=== PATIENT | female | born 1940 | race Caucasian/White ===

== ENCOUNTER → 2017-01-18 | Outpatient (CLI) | payer MEDICARE | END | disposition home or self-care (01) | LOC: CFH 10:46 | PROVIDERS: ATTEND Nurse Practitioner Family | DX: Z12.31 Encounter for screening mammogram for malignant neoplasm of breast (principal) | CPT/HCPCS: G0202 ==

== ENCOUNTER → 2017-05-20 | Outpatient (CLI) | payer MEDICARE | LOC: CFH 10:50 | PROVIDERS: ATTEND Nurse Practitioner Family | DX: Z13.820 Encounter for screening for osteoporosis (principal); M85.88 Other specified disorders of bone density and structure, other site; N95.1 Menopausal and female climacteric states | CPT/HCPCS: 77080 ==

== ENCOUNTER 2017-12-02 08:31 | Inpatient (IN) | payer MEDICARE ==
[~2017-12-02] VITALS: Ht 157.5 cm; Wt 63.9 kg
[2017-12-02] MEDS ORDERED: ONDANSETRON ODT 4 MG ONE (08:54)
[2017-12-02] MEDS ORDERED: MORPHINE SULFATE 4 MG/ML, 1ML ONE ×2 (08:55→16:44)
[2017-12-02] MEDS ORDERED: MORPHINE SULFATE 4 MG/ML, 1ML IVPush PRN ×2 (09:00→15:30)
[2017-12-02] MEDS ORDERED: SODIUM CHLORIDE FLUSH 10ML SYR IVF ONE (09:00)
[2017-12-02] MEDS ORDERED: ONDANSETRON ODT 4 MG PO ONE (09:00)
[2017-12-02 09:35] LABS: BASOPHILS # (AUTO) 0.08 x10^3/uL (0-0.1); BASOPHILS % (AUTO) 1 % (0-1); EOSINOPHILS # (AUTO) 0.11 x10^3/uL (0-0.4); EOSINOPHILS % (AUTO) 2 % (1-7); LYMPHOCYTES # (AUTO) 2.08 x10^3/uL (1-3.4); LYMPHOCYTES % (AUTO) 31 % (22-44); MD NO; MEAN CORPUSCULAR HEMOGLOBIN 32.3 pg (27.0-34.8); MEAN CORPUSCULAR HGB CONC 33.6 g/dL (32.4-35.8); MEAN PLATELET VOLUME 9.5 fL (7.4-10.4); MONOCYTES # (AUTO) 0.41 x10^3/uL (0.2-0.8); MONOCYTES % (AUTO) 6 % (2-9); NEUTROPHILS # (AUTO) 4.01 x10^3/uL (1.8-6.8); NEUTROPHILS % (AUTO) 60 % (42-75); PLATELET COUNT 218 x10^3/uL (130-400); RED BLOOD COUNT 4.54 x10^6/uL (3.82-5.3); RED CELL DISTRIBUTION WIDTH 13.4 % (9.6-15.2)
[2017-12-02 09:46] LABS: ALANINE AMINOTRANSFERASE 22 U/L (12-78); ALBUMIN 3.8 g/dL (3.4-5.0); ANION GAP 10 mmol/L (5-15); CALCIUM 8.6 mg/dL (8.5-10.1); CHLORIDE 108 mmol/L (98-107)
[2017-12-02 09:48] LABS: ALKALINE PHOSPHATASE 85 U/L (45-117); BILIRUBIN,TOTAL 0.2 mg/dL (0.2-1.0); CREATININE 0.83 mg/dL (0.55-1.02); TOTAL PROTEIN 7.6 g/dL (6.4-8.2)
[2017-12-02] MEDS ORDERED: SODIUM CHLORIDE 0.9% 1,000 ML IV ONE (10:04)
[2017-12-02] MEDS ORDERED: CEFAZOLIN 1,000 MG ONE (10:24)
[2017-12-02] MEDS ORDERED: SODIUM CHLORIDE FLUSH 10ML SYR IVF PRN (10:30)
[2017-12-02] MEDS ORDERED: MULT-6 PO (11:02)
[2017-12-02] MEDS ORDERED: ASPI-650 PO (11:03)
[2017-12-02] MEDS ORDERED: MULT-706 PO (11:05)
[2017-12-02] MEDS ORDERED: BIOT1CAP3 PO (11:05)
[2017-12-02] MEDS ORDERED: LABETALOL 5MG/ML, 20ML IVPush PRN (11:30)
[2017-12-02] MEDS ORDERED: ONDANSETRON 2MG/ML, 2ML IVPush PRN (11:30)
[2017-12-02] MEDS ORDERED: ACETAMINOPHEN 325 MG TABLET PO PRN ×2 (11:30→15:30)
[2017-12-02] MEDS ORDERED: morphine SULFATE 10 MG/ML, 1ML IVPush PRN (11:30)
[2017-12-02] MEDS ORDERED: hydrALAzine 20 MG/ML, 1ML IVPush PRN (11:30)
[2017-12-02] MEDS ORDERED: DOCUSATE 100 MG CAPSULE PO PRN (11:30)
[2017-12-02] MEDS ORDERED: BISACODYL 10 MG SUPP PR PRN (11:30)
[2017-12-02] MEDS ORDERED: ONDANSETRON ODT 4 MG PO PRN (11:30)
[2017-12-02 12:30] VITALS: BP 138/70
[2017-12-02] MEDS: ALBUTEROL/IPRATROPIUM 2.5MG/0.5MG, 3 ML NPPB SCH ×2 (15:00→19:00)
[2017-12-02] MEDS ORDERED: FENTANYL PF 250 MCG/5ML ONE (15:00)
[2017-12-02] MEDS ORDERED: ONDANSETRON 2MG/ML, 2ML ONE (15:19)
[2017-12-02] MEDS ORDERED: PROPOFOL 10 MG/ML, 20ML ONE (15:19)
[2017-12-02] MEDS ORDERED: DEXAMETHASONE 4 MG/ML, 1ML ONE (15:19)
[2017-12-02] MEDS ORDERED: hydrALAzine 20 MG/ML, 1ML IV PRN (15:30)
[2017-12-02] MEDS ORDERED: ONDANSETRON 2MG/ML, 2ML IV PRN ×2 (15:30→18:30)
[2017-12-02] MEDS ORDERED: LABETALOL 5MG/ML, 20ML IV PRN (15:30)
[2017-12-02] MEDS ORDERED: OXYcodone 5 MG/5 ML ORAL.SOL UDC PO PRN (15:30)
[2017-12-02] MEDS ORDERED: MEPERIDINE/PF 25MG/0.5ML IVPush PRN (15:30)
[2017-12-02] MEDS ORDERED: PROMETHAZINE 25 MG/ML, 1ML IV PRN (15:30)
[2017-12-02] MEDS ORDERED: HYDROmorphone 1 MG/ML, 1ML IV PRN ×2 (15:30→18:30)
[2017-12-02] MEDS ORDERED: OXYcodone 5 MG/5 ML ORAL.SOL UDC ONE ×2 (16:11→16:16)
[2017-12-02] MEDS ORDERED: ACETAMINOPHEN 650 MG/20.3 ML UDC ONE (16:11)
[2017-12-02] MEDS ORDERED: FENTANYL PF 100 MCG/2ML ONE (16:11)
[2017-12-02] MEDS ORDERED: LABETALOL 5MG/ML, 20ML ONE (16:13)
[2017-12-02] MEDS: FENTANYL PF 100 MCG/2ML IV PRN ×2 (16:26→16:39)
[2017-12-02] MEDS ORDERED: KETOROLAC 30 MG/1 ML IV SCH (18:30)
[2017-12-02] MEDS ORDERED: HYDROcodone/APAP 7.5-325MG/15ML UDC PO PRN (18:30)
[2017-12-02] MEDS ORDERED: OXYcodone/APAP 5/325MG TABLET PO PRN (18:30)
[2017-12-02 19:53] VITALS: BP 138/69
[2017-12-02] MEDS ORDERED: ALBUTEROL/IPRATROPIUM 2.5MG/0.5MG, 3 ML NPPB PRN (20:00)
[2017-12-02] MEDS: DOCUSATE 100 MG CAPSULE PO SCH (20:29)
[2017-12-02] MEDS: CEFAZOLIN PMX 1GM/50ML 50 ML IVPB SCH (23:11)
[2017-12-03 00:09] VITALS: BP 125/70
[2017-12-03] MEDS: KETOROLAC 30 MG/1 ML IV SCH ×3 (01:04→16:38)
[2017-12-03 04:34] VITALS: BP 122/69
[2017-12-03 05:49] LABS: ANION GAP 8 mmol/L (5-15); CALCIUM 7.9 mg/dL (8.5-10.1); CHLORIDE 105 mmol/L (98-107)
[2017-12-03 06:00] LABS: CREATININE 0.83 mg/dL (0.55-1.02); THYROID STIMULATING HORMONE 0.681 mIU/L (0.358-3.740)
[2017-12-03 06:03] LABS: BASOPHILS # (AUTO) 0.01 x10^3/uL (0-0.1); BASOPHILS % (AUTO) 0 % (0-1); EOSINOPHILS % (AUTO) 0 % (1-7); LYMPHOCYTES # (AUTO) 0.94 x10^3/uL (1-3.4); LYMPHOCYTES % (AUTO) 8 % (22-44); MD NO; MEAN CORPUSCULAR HEMOGLOBIN 32.4 pg (27.0-34.8); MEAN CORPUSCULAR HGB CONC 33.6 g/dL (32.4-35.8); MEAN CORPUSCULAR VOLUME 96.4 fL (80-100); MEAN PLATELET VOLUME 9.3 fL (7.4-10.4); MONOCYTES # (AUTO) 0.87 x10^3/uL (0.2-0.8); MONOCYTES % (AUTO) 8 % (2-9); NEUTROPHILS # (AUTO) 9.72 x10^3/uL (1.8-6.8); NEUTROPHILS % (AUTO) 84 % (42-75); PLATELET COUNT 164 x10^3/uL (130-400); RED CELL DISTRIBUTION WIDTH 13.3 % (9.6-15.2)
[2017-12-03] MEDS: ENOXAPARIN 40 MG/0.4 ML SQ SCH (06:20)
[2017-12-03 06:48] VITALS: BP 130/72
[2017-12-03] MEDS: DOCUSATE 100 MG CAPSULE PO SCH ×2 (07:53→20:10)
[2017-12-03] MEDS: CEFAZOLIN PMX 1GM/50ML 50 ML IVPB SCH (07:54)
[2017-12-03] MEDS ORDERED: TAMSULOSIN 0.4 MG CAP.ER.24H PO SCH (10:30)
[2017-12-03 13:10] VITALS: BP 99/58
[2017-12-03 19:22] VITALS: BP 118/70
[2017-12-04 01:11] VITALS: BP 123/68
[2017-12-04 05:32] LABS: BASOPHILS # (AUTO) 0.05 x10^3/uL (0-0.1); BASOPHILS % (AUTO) 1 % (0-1); EOSINOPHILS # (AUTO) 0.03 x10^3/uL (0-0.4); EOSINOPHILS % (AUTO) 0 % (1-7); LYMPHOCYTES # (AUTO) 1.65 x10^3/uL (1-3.4); LYMPHOCYTES % (AUTO) 20 % (22-44); MD NO; MEAN CORPUSCULAR HEMOGLOBIN 32.9 pg (27.0-34.8); MEAN CORPUSCULAR HGB CONC 34.1 g/dL (32.4-35.8); MEAN CORPUSCULAR VOLUME 96.5 fL (80-100); MEAN PLATELET VOLUME 9.4 fL (7.4-10.4); MONOCYTES # (AUTO) 0.84 x10^3/uL (0.2-0.8); MONOCYTES % (AUTO) 10 % (2-9); NEUTROPHILS # (AUTO) 5.71 x10^3/uL (1.8-6.8); NEUTROPHILS % (AUTO) 69 % (42-75); PLATELET COUNT 136 x10^3/uL (130-400); RED BLOOD COUNT 3.18 x10^6/uL (3.82-5.3); RED CELL DISTRIBUTION WIDTH 13.1 % (9.6-15.2)
[2017-12-04] MEDS: POLYETHYLENE GLYCOL 17 GM PACKET PO PRN (05:41)
[2017-12-04] MEDS: ENOXAPARIN 40 MG/0.4 ML SQ SCH (05:41)
[2017-12-04 07:22] VITALS: BP 112/64
[2017-12-04] MEDS: DOCUSATE 100 MG CAPSULE PO SCH ×2 (08:58→21:04)
[2017-12-04] MEDS ORDERED: ENOX40SY4 SQ (11:52)
[2017-12-04] MEDS ORDERED: TRAM50TA2 PO (11:52)
[2017-12-04 13:48] VITALS: BP 116/61
[2017-12-04 14:10] VITALS: BP 116/71
[2017-12-04] MEDS ORDERED: DILTIAZEM 5 MG/ML, 5ML IVPush PRN (15:00)
[2017-12-04 15:10] VITALS: BP 98/60
[2017-12-04] MEDS: DILTIAZEM 5 MG/ML, 10ML IVPush PRN ×3 (15:40→21:14)
[2017-12-04 18:25] VITALS: BP 92/61
[2017-12-05 01:32] VITALS: BP 95/57
[2017-12-05] MEDS: ENOXAPARIN 40 MG/0.4 ML SQ SCH (05:37)
[2017-12-05] MEDS: POLYETHYLENE GLYCOL 17 GM PACKET PO PRN (05:37)
[2017-12-05 08:00] VITALS: BP 109/67
[2017-12-05] MEDS: DOCUSATE 100 MG CAPSULE PO SCH ×2 (08:52→20:47)
[2017-12-05 14:00] VITALS: BP 112/72
[2017-12-05] MEDS: METOPROLOL TARTRATE 25 MG TABLET PO SCH (18:01)
[2017-12-05 19:04] VITALS: BP 105/69
[2017-12-06] VITALS (13 sets, daily range): BP systolic 93–146; BP diastolic 52–85
[2017-12-06] MEDS: ENOXAPARIN 40 MG/0.4 ML SQ SCH (05:48)
[2017-12-06] MEDS: METOPROLOL TARTRATE 25 MG TABLET PO SCH ×2 (05:49→19:55)
[2017-12-06 06:11] LABS: BASOPHILS # (AUTO) 0.01 x10^3/uL (0-0.1); BASOPHILS % (AUTO) 0 % (0-1); EOSINOPHILS # (AUTO) 0.07 x10^3/uL (0-0.4); EOSINOPHILS % (AUTO) 1 % (1-7); LYMPHOCYTES # (AUTO) 1.17 x10^3/uL (1-3.4); LYMPHOCYTES % (AUTO) 18 % (22-44); MD NO; MEAN CORPUSCULAR HEMOGLOBIN 32.2 pg (27.0-34.8); MEAN CORPUSCULAR HGB CONC 33.6 g/dL (32.4-35.8); MEAN CORPUSCULAR VOLUME 95.7 fL (80-100); MEAN PLATELET VOLUME 8.8 fL (7.4-10.4); MONOCYTES # (AUTO) 0.62 x10^3/uL (0.2-0.8); MONOCYTES % (AUTO) 10 % (2-9); NEUTROPHILS # (AUTO) 4.52 x10^3/uL (1.8-6.8); NEUTROPHILS % (AUTO) 71 % (42-75); PLATELET COUNT 157 x10^3/uL (130-400); RED BLOOD COUNT 3.32 x10^6/uL (3.82-5.3); RED CELL DISTRIBUTION WIDTH 12.5 % (9.6-15.2)
[2017-12-06 06:20] LABS: ANION GAP 6 mmol/L (5-15); CALCIUM 8.5 mg/dL (8.5-10.1); CHLORIDE 104 mmol/L (98-107); CREATININE 0.51 mg/dL (0.55-1.02)
[2017-12-06] MEDS ORDERED: MAGNESIUM SULFATE PMX 4GM/100M 100 ML IV ONE (08:00)
[2017-12-06] MEDS: DOCUSATE 100 MG CAPSULE PO SCH ×2 (09:00→19:55)
[2017-12-06] MEDS ORDERED: METO25TA35 PO (15:22)
[2017-12-07 01:14] VITALS: BP 140/80
[2017-12-07 03:00] VITALS: BP 145/76
[2017-12-07] MEDS ORDERED: DILTIAZEM 125 MG in SODIUM CHLORIDE 0.9% 100 ML IV PRN (04:00)
[2017-12-07 04:23] VITALS: BP 143/76
[2017-12-07] MEDS: METOPROLOL TARTRATE 25 MG TABLET PO SCH ×3 (04:42→21:10)
[2017-12-07 05:05] LABS: BASOPHILS # (AUTO) 0.04 x10^3/uL (0-0.1); BASOPHILS % (AUTO) 1 % (0-1); EOSINOPHILS # (AUTO) 0.01 x10^3/uL (0-0.4); EOSINOPHILS % (AUTO) 0 % (1-7); LYMPHOCYTES # (AUTO) 1.04 x10^3/uL (1-3.4); LYMPHOCYTES % (AUTO) 15 % (22-44); MD NO; MEAN CORPUSCULAR HEMOGLOBIN 32.4 pg (27.0-34.8); MEAN CORPUSCULAR HGB CONC 33.7 g/dL (32.4-35.8); MEAN PLATELET VOLUME 9.1 fL (7.4-10.4); MONOCYTES # (AUTO) 0.81 x10^3/uL (0.2-0.8); MONOCYTES % (AUTO) 12 % (2-9); NEUTROPHILS # (AUTO) 5.02 x10^3/uL (1.8-6.8); NEUTROPHILS % (AUTO) 73 % (42-75); PLATELET COUNT 205 x10^3/uL (130-400); RED CELL DISTRIBUTION WIDTH 12.6 % (9.6-15.2)
[2017-12-07 05:13] LABS: ANION GAP 11 mmol/L (5-15); CALCIUM 8.6 mg/dL (8.5-10.1); CHLORIDE 103 mmol/L (98-107)
[2017-12-07 05:16] LABS: CREATININE 0.63 mg/dL (0.55-1.02)
[2017-12-07] MEDS ORDERED: SODIUM CHLORIDE 0.9% 1,000ML IVBOLUS ONE (05:30)
[2017-12-07] MEDS ORDERED: DILTIAZEM 5 MG/ML, 5ML IVPush ONE (05:30)
[2017-12-07] MEDS: ENOXAPARIN 40 MG/0.4 ML SQ SCH (09:10)
[2017-12-07] MEDS: DOCUSATE 100 MG CAPSULE PO SCH ×2 (09:10→21:10)
[2017-12-07] MEDS ORDERED: POTASSIUM CHLORIDE 20 MEQ TAB.ER.PRT PO ONE (10:30)
[2017-12-07 14:51] VITALS: BP 120/75
[2017-12-07 14:57] VITALS: BP 134/72
[2017-12-07 17:21] LABS: CULTURE INDICATED? YES; MICROSCOPIC INDICATED
[2017-12-07 19:00] VITALS: BP 120/69
[2017-12-08 00:38] VITALS: BP 101/62
[2017-12-08] MEDS ORDERED: DILTIAZEM 125 MG in SODIUM CHLORIDE 0.9% 100 ML IV PRN (04:00)
[2017-12-08 05:10] VITALS: BP 120/76
[2017-12-08] MEDS: METOPROLOL TARTRATE 25 MG TABLET PO SCH ×3 (05:11→20:55)
[2017-12-08] MEDS: ASPIRIN 81 MG TABLET EC PO SCH (05:11)
[2017-12-08 06:55] VITALS: BP 125/80
[2017-12-08] MEDS: DOCUSATE 100 MG CAPSULE PO SCH ×2 (07:43→20:55)
[2017-12-08] MEDS: ENOXAPARIN 40 MG/0.4 ML SQ SCH (10:39)
[2017-12-08 12:19] VITALS: BP 126/80
[2017-12-08 15:00] VITALS: BP 131/72
[2017-12-08 19:45] VITALS: BP 145/78
[2017-12-09 01:24] VITALS: BP 122/75
[2017-12-09 05:50] VITALS: BP 128/78
[2017-12-09] MEDS: ASPIRIN 81 MG TABLET EC PO SCH (06:07)
[2017-12-09] MEDS: METOPROLOL TARTRATE 25 MG TABLET PO SCH ×2 (06:07→13:49)
[2017-12-09] MEDS: ENOXAPARIN 40 MG/0.4 ML SQ SCH (07:35)
[2017-12-09] MEDS: DOCUSATE 100 MG CAPSULE PO SCH (07:35)
[2017-12-09 08:01] VITALS: BP 139/85
[2017-12-09] MEDS ORDERED: METO25TA35 PO (12:04)
[2017-12-09 13:42] VITALS: BP 156/78
== END 2017-12-09 17:20 | DRG 480 ==
LOC: OR 10:25 → EDIP 11:13 → 4NOR 12:01 → 5SO 12-04 15:07
PROVIDERS: ADMIT Hospitalist; ATTEND Family Medicine
PROC: 0QS636Z Reposition Right Upper Femur with Intramedullary Internal Fixation Device, Percutaneous Approach (ICD-10-PCS; principal; 2017-12-02 15:30)
DX: S72.141A Displaced intertrochanteric fracture of right femur, initial encounter for closed fracture (principal); G93.40 Encephalopathy, unspecified; J44.1 Chronic obstructive pulmonary disease with (acute) exacerbation; E87.6 Hypokalemia; E87.8 Other disorders of electrolyte and fluid balance, not elsewhere classified; I48.91 Unspecified atrial fibrillation; W18.39XA Other fall on same level, initial encounter; Z91.81 History of falling; Y93.89 Activity, other specified; Y92.89 Other specified places as the place of occurrence of the external cause
CPT/HCPCS: 36415; 70450; 71045; 76000; 80048; 80053; 81001; 83735; 84100; 84443; 85025; 87086; 93005; 93306; 94640; 96374; 99285; C1713; J0690; J1100; J1650; J1885; J2405; J2704; J3010; J7620; Q0162; J2270; J3475; J7030